=== PATIENT | female | born 1990 | race Caucasian/White ===

== ENCOUNTER → 2017-06-04 | Day surgery (SDC) | payer OTHER ==
[2017-06-04 16:28] VITALS: BP 157/96; TEMP 98.5; BMI 39.1
[2017-06-04 16:52] LABS: #Eosinphils 0.1 thou/uL (0.0-0.7); #Lymphocytes 3.1 thou/uL (1.20-3.40); #Monocytes 0.7 thou/uL (0.11-0.59); #Neutrophils 7.7 thou/uL (1.40-6.50); %Basophils 0.4 % (0.0-1.0); %Eosinophils 0.9 % (0.0-10.0); %Lymphocytes 26.8 % (21.0-51.0); %Monocytes 5.6 % (0.0-10.0); Hematocrit 39.1 % (36.0-47.0); Mean Platelet Volume 7.5 fL (7.4-10.4); Red Blood Cell (RBC) Count 4.22 mill/uL (4.20-5.40); White Blood Cell (WBC) Count 11.6 thou/uL (4.8-10.8)
[2017-06-04 17:16] LABS: ALT (SGPT) 12 U/L (8-55); AST (SGOT) 14 U/L (5-34); Alkaline Phosphatase 224 U/L (40-150); Anion Gap 13 mmol/L (10-20); BUN (Urea Nitrogen) 10 mg/dL (7.0-18.7); Bilirubin, Total 0.4 mg/dL (0.2-1.2); Calc. Creatinine Clearance 216 mL/min (70-130); Calcium 8.8 mg/dL (7.8-10.44); Carbon Dioxide 21 mmol/L (22-29); Chloride 106 mmol/L (98-107); Estimated GFR-MDRD Greater than 90; Globulin 3.2 g/dL (2.4-3.5); Protein, Total 6.5 g/dL (6.0-8.3)
--- NOTE | 2017-06-04 18:16 | PDOC.LDHP ---
Labor and Delivery H&P Chief complaint: other (BP workup) HPI: 26 y/o G1 at 31w5d, patient of Dr. Tello, presents from clinic for BP workup. Patient has a history of elevated BPs prior to 20 weeks but has not required medication. Denies VB, LOF, ctx, ARORA, vision changes, or abdominal pain. +FM. ROS neg for HEENT, cv, pulm, gi, gu, neuro, psych, skin, musculoskeletal or constitutional symptoms other than mentioned above. OB History Details: First Current complications: hypertension Past Medical History: PCOS CHTN Current medications: pre-antonio vitamins Previous surgical history: none Allergies/Adverse Reactions: Allergies Allergy/AdvReac Type Severity Reaction Status Date / Time No Known Allergies Allergy Verified 06/04/17 16:29 Social history: none - Physical Exam Vital signs reviewed and normal: yes General: NAD, resting Lungs: nonlabored breathing Abdomen: gravid Extremeties: no edema FHT: category 1 (130s, mod variability, + accels, no decels) [place] contractions every: none - OB Labs Additional Labs: Laboratory Results - last 24 hr 06/04/17 06/04/17 06/04/17 16:41 16:41 17:30 WBC 11.6 H RBC 4.22 Hgb 13.6 Hct 39.1 MCV 92.5 MCH 32.2 H MCHC 34.9 RDW 12.1 Plt Count 139 MPV 7.5 Neutrophils % 66.3 Lymphocytes % 26.8 Monocytes % 5.6 Eosinophils % 0.9 Basophils % 0.4 Neutrophils # 7.7 H Lymphocytes # 3.1 Monocytes # 0.7 H Eosinophils # 0.1 Basophils # 0.0 Sodium 136 Potassium 3.9 Chloride 106 Carbon Dioxide 21 L Anion Gap 13 BUN 10 Creatinine 0.60 Estimated GFR (MDRD) Greater than 90 Glucose 90 Calcium 8.8 Total Bilirubin 0.4 AST 14 ALT 12 Alkaline Phosphatase 224 H Serum Total Protein 6.5 Albumin 3.3 L Globulin 3.2 Albumin/Globulin Ratio 1.0 L U Random Total Protein Less than 10 Urine Creatinine 29.02 L - Assessment 26 y/o G1 at 31w5d with no e/o preeclampsia and normal to mild range BPs. status reassuring with reactive NST. - Plan -: D/c home with precautions. Discussed with Dr. Tello who will call in Rx for Labetalol to patient's pharmacy and schedule for follow up next week.
== END ==
LOC: L&D/OP 16:04
PROVIDERS: ATTEND Obstetrics & Gynecology
DX: O16.3 Unspecified maternal hypertension, third trimester (principal); E28.2 Polycystic ovarian syndrome; Z3A.31 31 weeks gestation of pregnancy; Z79.899 Other long term (current) drug therapy
CPT/HCPCS: 36415; 80053; 82570; 84156; 85025; 86592; 87389

== ENCOUNTER 2017-07-16 10:49 | Inpatient (IN) | payer OTHER ==
[2017-07-16] MEDS: Lactated Ringer's 1,000 ML IV SCH ×3 (11:25→19:00)
[2017-07-16 11:44] VITALS: BMI 40.4
[2017-07-16] MEDS ORDERED: Promethazine HCl 25 MG/ML VIAL IM PRN ×2 (11:49→19:48)
[2017-07-16] MEDS ORDERED: Acetaminophen/Codeine 30-300mg Tablet PO PRN ×2 (11:49)
[2017-07-16] MEDS ORDERED: Ibuprofen 800 MG TAB PO PRN (11:49)
[2017-07-16] MEDS ORDERED: Meperidine HCl/PF 25 MG/ML VIAL IM/IV PRN (11:49)
[2017-07-16] MEDS ORDERED: Lidocaine 1% (PF) 30 ML VIAL SC PRN (11:49)
[2017-07-16] MEDS ORDERED: Ondansetron HCl/PF 4 MG/2 ML Vial IVP PRN ×2 (11:49→19:48)
[2017-07-16] MEDS ORDERED: Docusate 100 MG CAP PO PRN (11:58)
[2017-07-16] MEDS ORDERED: LR 500 ML/Oxytocin 10 units 500 ML IV SCH (12:00)
[2017-07-16 12:03] LABS: Hemoglobin 13.1 g/dL (12.0-16.0); Mean Corpuscular Volume 90.9 fl (81.0-99.0); Mean Platelet Volume 7.4 fL (7.4-10.4); Platelet Count 212 thou/uL (130-400); RBC Distribution Width 12.9 % (11.5-14.5); Red Blood Cell (RBC) Count 4.37 mill/uL (4.20-5.40); White Blood Cell (WBC) Count 12.3 thou/uL (4.8-10.8)
--- NOTE | 2017-07-16 12:05 | PDOC.LDHP ---
Labor and Delivery H&P Chief complaint: scheduled induction HPI: Pt is a 26yo G1 @ 37.5 sent from clinic w BP 160/110s and hx of CHTN on meds, w increasing BP for IOL. No PIH sx. Current gestational age (weeks): 37 Due date: 08/01/17 Dating criteria: first trimester ultrasound Grav: 1 Para: 0 OB History Details: CHTN dx from BP 140/90s noted at 13 weeks Single UA Current complications: other (CHTN) Abnormal US findings: Yes (single UA) Past Medical History: CHTN Current medications: other (labetalol 100mg BID) Previous surgical history: none Allergies/Adverse Reactions: Allergies Allergy/AdvReac Type Severity Reaction Status Date / Time No Known Allergies Allergy Verified 06/04/17 16:29 Social history: none - Physical Exam Abnormal vital signs: BP in office 160/100 General: resting Lungs: nonlabored breathing Abdomen: gravid Extremeties: no edema FHT: category 1 - Vaginal Exam cm dilated: 2 Effacement: 75% Station: -2 - OB Labs Blood type: O RH: positive Antibody Screen: negative HIV: negative RPR: negative HEPSAg: negative 1 hour GCT: negative GBS: negative Rubella: non-immune - Assessment L&D Assessment: medically indicated induction (CHTN w increasing BP over baseline) - Plan Plan: admit to L&D, cervical ripening, labor augmentation if indicated, anesthesia consult for pain management -: A/P: 26yo G1 at 37.5 w CHTN, single UA and increasing BP over baseline w favorable cervix for IOL
[2017-07-16 12:16] LABS: ALT (SGPT) 20 U/L (8-55); AST (SGOT) 18 U/L (5-34)
[2017-07-16 12:35] LABS: Syphilis Antibody Nonreactive (Nonreactive); Syphilis Antibody Index 0.03 S/CO (<1.00 Non-Reactive)
[2017-07-16 12:36] LABS: HBSAg Index 0.38 S/CO (0-0.99); Hep B Surf Ag Non-Reactive S/CO (NonReactive)
[2017-07-16] MEDS ORDERED: Fentanyl 4 mcg/Marc 0.1% Cadd 100 ML ONE (17:23)
[2017-07-16] MEDS: LR 500 ML/Oxytocin 10 units 500 ML IV SCH (18:58)
[2017-07-16] MEDS ORDERED: Acetaminophen 325 MG TAB PO PRN (19:48)
[2017-07-16] MEDS ORDERED: Naloxone HCl 0.4 mg/ml Vial IVP PRN ×2 (19:48)
[2017-07-16] MEDS ORDERED: Eucerin (Mineral Oil/Petrolatum,White) 30 gm Jar TOP PRN (19:48)
[2017-07-16] MEDS ORDERED: Lactated Ringer's 500 ML IV PRN (19:48)
[2017-07-16] MEDS ORDERED: diphenhydrAMINE 50 MG/ML VIAL IVP PRN (19:48)
[2017-07-16] MEDS ORDERED: ePHEDrine/0.9% NaCl/PF SYRINGE 50 mg/10 ml SLOW IVP PRN (19:48)
[2017-07-16] MEDS ORDERED: Communication Order-Pharmacy FS SCH (20:00)
--- NOTE | 2017-07-17 00:10 | PDOC.EVN ---
Event Note - Event Note Event Note: Pt seen at 2019, comfortable with epidural, no complaints 130/80s NAD Resp unlabored . cx 3/50/-3 Laboratory Last Values WBC 12.3 thou/uL (4.8-10.8) H 07/16/17 11:25 RBC 4.37 mill/uL (4.20-5.40) 07/16/17 11:25 Hgb 13.1 g/dL (12.0-16.0) 07/16/17 11:25 Hct 39.7 % (36.0-47.0) 07/16/17 11:25 MCV 90.9 fl (81.0-99.0) 07/16/17 11:25 MCH 30.0 pg (27.0-31.0) 07/16/17 11:25 MCHC 33.0 g/dL (32.0-36.0) 07/16/17 11:25 RDW 12.9 % (11.5-14.5) 07/16/17 11:25 Plt Count 212 thou/uL (130-400) 07/16/17 11:25 MPV 7.4 fL (7.4-10.4) 07/16/17 11:25 AST 18 U/L (5-34) 07/16/17 11:25 ALT 20 U/L (8-55) 07/16/17 11:25 Syphilis IgG/IgM Ab Nonreactive (Nonreactive) 07/16/17 11:25 Hep Bs Antigen Non-Reactive S/CO (NonReactive) 07/16/17 11:25 Blood Type O POSITIVE 07/16/17 11:25 Antibody Screen NEGATIVE 07/16/17 11:25 A/P 37+ week IUP with Pre-e, IOL with pitocin, on Mag * add on creatinine * has epidural * AROM when appropriate
--- NOTE | 2017-07-17 00:13 | PDOC.EVN ---
Event Note - Event Note Event Note: Pt seen at 2320 Hitting epidural button, starting to feel some ctx, otherwise no complaints 120-130/60-80s NAD Resp unlabored . cx 3.5/50/-2 AROM clear with show A/P: * 37+ week IUP with Cat I FHT * IOL for Pre-e s/p AROM * On Magnesium. Will check AM labs
[2017-07-17 01:06] LABS: Calc. Creatinine Clearance 188 mL/min (70-130); Estimated GFR-MDRD Greater than 90
[2017-07-17] MEDS: Fentanyl 4mcg/Marcaine 0.1% Cassette 100 ML EPIDURAL SCH ×3 (01:25→11:27)
[2017-07-17 05:34] LABS: #Basophils 0.1 thou/uL (0.0-0.2); #Eosinphils 0.1 thou/uL (0.0-0.7); #Lymphocytes 3.6 thou/uL (1.20-3.40); %Basophils 0.5 % (0.0-1.0); %Eosinophils 0.4 % (0.0-10.0); %Lymphocytes 24.3 % (21.0-51.0); %Monocytes 6.7 % (0.0-10.0); Hemoglobin 12.1 g/dL (12.0-16.0); Mean Corpuscular HGB CONC 33.3 g/dL (32.0-36.0); Mean Corpuscular Hemoglobin 30.5 pg (27.0-31.0); Mean Corpuscular Volume 91.5 fl (81.0-99.0); Mean Platelet Volume 7.2 fL (7.4-10.4); Platelet Count 191 thou/uL (130-400); Red Blood Cell (RBC) Count 3.96 mill/uL (4.20-5.40); White Blood Cell (WBC) Count 14.8 thou/uL (4.8-10.8)
[2017-07-17 06:04] LABS: ALT (SGPT) 18 U/L (8-55); AST (SGOT) 19 U/L (5-34); Albumin 2.9 g/dL (3.5-5.0); Alkaline Phosphatase 253 U/L (40-150); Anion Gap 15 mmol/L (10-20); BUN (Urea Nitrogen) 11 mg/dL (7.0-18.7); Bilirubin, Total 0.6 mg/dL (0.2-1.2); Calc. Creatinine Clearance 167 mL/min (70-130); Calcium 8.9 mg/dL (7.8-10.44); Carbon Dioxide 20 mmol/L (22-29); Chloride 109 mmol/L (98-107); Estimated GFR-MDRD 86; Glucose 80 mg/dL (70-105); Potassium 3.9 mmol/L (3.5-5.1); Protein, Total 5.9 g/dL (6.0-8.3); Sodium 140 mmol/L (136-145)
[2017-07-17] MEDS: Lactated Ringer's 1,000 ML IV SCH (07:45)
--- NOTE | 2017-07-17 08:39 | PDOC.LDPN ---
Labor & Delivery Progress Note - Subjective Subjective: comfortable - Objective Vital signs reviewed and normal: yes General: NAD Uterine fundus: non tender Dilation: 7 Effacement: 100% Station: 1+ FHT: category 1 [place] contractions every: 3 Other exam findings: pit at 10 - Assessment (1) Gestational hypertension Code(s): O13.9 - GESTATIONAL HTN W/O SIGNIFICANT PROTEINURIA, UNSP TRIMESTER Current Visit: Yes Status: Acute Qualifiers: Trimester: third trimester Qualified Code(s): O13.3 - Gestational [ -induced] hypertension without significant proteinuria, third trimester Plan: continue plan of care, labor augmentation -: anticipate continued progress through active phase of labor.
[2017-07-17] MEDS: LR 500 ML/Oxytocin 10 units 500 ML IV SCH (09:21)
[2017-07-17] MEDS ORDERED: Bupivacaine 0.25% HCL 30 ML VIAL ONE (11:11)
[2017-07-17] MEDS: LR / Pitocin 40 units/1000 ml 1,000 ML IV PRN ×2 (12:07→14:16)
--- NOTE | 2017-07-17 12:28 | PDOC.OPDEL ---
OB Operative/Delivery Note Delivery Dr/Surgeon: Alex ventura Omer Jeremy MS3 Pre-Delivery Diagnosis: medically indicated induction (gest htn) Weeks gestation: 37 Anesthesia: epidural - Findings A Sex: male Weight: 0 oz (pending) - 1 min: 9 - 5 min: 9 - Additional Findings/Plan Placenta delivered: spontaneous Repaired Obstetrical Laceration: 2nd degree (repair with 2/0 chromic.) Estimated blood loss: 400 Post delivery plan: routine recovery
[2017-07-17] MEDS ORDERED: Varicella virus, LIVE 0.5 ML VIAL SC ONE (14:54)
[2017-07-17] MEDS ORDERED: Adacel (T-DAP) 0.5 ML VIAL IM ONE (14:54)
[2017-07-17] MEDS ORDERED: Promethazine HCl 25 MG/ML VIAL IM PRN (14:54)
[2017-07-17] MEDS ORDERED: Acetaminophen/Codeine 30-300mg Tablet PO PRN ×2 (14:54)
[2017-07-17] MEDS ORDERED: Preparation H Ointment 28 GM TUBE PR PRN (14:54)
[2017-07-17] MEDS ORDERED: Measles/Mumps/Rubella 10 MCG/0.5 ML VIAL SC ONE (14:54)
[2017-07-17] MEDS ORDERED: Zolpidem Tartrate 5 MG TAB PO PRN (14:54)
[2017-07-17] MEDS ORDERED: Ondansetron HCl/PF 4 MG/2 ML Vial IVP PRN (14:54)
[2017-07-17] MEDS ORDERED: Milk Of Magnesia 30 ML UDCUP PO PRN (14:54)
[2017-07-17] MEDS ORDERED: diphenhydrAMINE 25 MG CAP PO PRN (14:54)
[2017-07-17] MEDS ORDERED: Bisacodyl 10 MG SUPP PR PRN (14:54)
[2017-07-17] MEDS ORDERED: LR / Pitocin 40 units/1000 ml 1,000 ML IV SCH (14:54)
[2017-07-17] MEDS ORDERED: Lanolin Ointment 7 GM TUBE TOP PRN (14:54)
[2017-07-17] MEDS ORDERED: Benzocaine/Menthol 20-0.5% 60 ML CAN TOP PRN (14:54)
[2017-07-17 14:56] LABS: HIV (1/2) Antibody/Antigen Non-Reactive (NonReactive); HIV 1/2 INDEX 0.12 S/CO (<1.00)
[2017-07-17] MEDS: Ibuprofen 800 MG TAB PO SCH ×2 (15:17→21:31)
[2017-07-17] MEDS: Ferrous Sulfate 325 MG TAB PO SCH (16:53)
[2017-07-17] MEDS: Docusate Calcium (SURFAK) 240 MG CAP PO SCH (21:30)
[2017-07-18] MEDS: Ibuprofen 800 MG TAB PO SCH ×3 (05:13→23:07)
--- NOTE | 2017-07-18 07:34 | PDOC.PP ---
Post Progress Note Post Day #: 1 PO intake tolerated: yes Flatus: yes Ambulation: yes Vital Signs (12 hours) Temp Pulse Resp BP BP 07/18/17 06:00 97.8 F 103 H 16 07/18/17 04:00 97.8 F 103 H 16 132/87 07/18/17 00:00 98.1 F 96 16 140/83 07/17/17 20:00 97.9 F 111 H 16 07/17/17 19:39 97.9 F 111 H 16 130/89 Weight Weight 221 lb - Physical Examination General: NAD Cardiovascular: no m/r/g, RRR Respiratory: clear to auscultation bilaterally, non-labored breathing Abdominal: + bowel sounds, lochia Extremities: negative homans (B) Neurological: no gross focal deficits Psychiatric: A&Ox3, normal affect Result Diagrams: 07/17/17 05:17 07/17/17 05:17 Additional Labs: Post Labs Blood Type O POSITIVE 07/16/17 11:25 Hep Bs Antigen Non-Reactive S/CO (NonReactive) 07/16/17 11:25 (1) Gestational hypertension Code(s): O13.9 - GESTATIONAL HTN W/O SIGNIFICANT PROTEINURIA, UNSP TRIMESTER Status: Acute Qualifiers: Trimester: third trimester Qualified Code(s): O13.3 - Gestational [ -induced] hypertension without significant proteinuria, third trimester - Assessment/Plan routine care. home tomorrow
[2017-07-18] MEDS: Ferrous Sulfate 325 MG TAB PO SCH ×2 (09:33→15:46)
[2017-07-18] MEDS: Prenatal Vitamin 1 TAB PO SCH (09:33)
[2017-07-18] MEDS: Docusate Calcium (SURFAK) 240 MG CAP PO SCH ×2 (09:33→21:33)
[2017-07-19] MEDS: Ibuprofen 800 MG TAB PO SCH ×2 (06:03→15:18)
--- NOTE | 2017-07-19 08:15 | DIS ---
DATE OF DISCHARGE: 07/19/2017 ADMITTING DIAGNOSIS: Chronic hypertension at term. DISCHARGE DIAGNOSIS: Chronic hypertension at term. PROCEDURE: Term spontaneous vaginal delivery. CONSULTATIONS: None. HOSPITAL COURSE: The patient is a 26-year-old female who was admitted on 07/16/2017 for worsen ing chronic hypertension at term for induction of labor. The patient subsequently has an uncomplicat ed term spontaneous vaginal delivery and with an estimated blood loss of 400 mL. For complete detail s of her delivery, please refer to the delivery note. The patient's course here on Labor and Delivery have been uncomplicated and blood pressure today is 127/79, temperature 97.8, pulse of 1 04, respiratory rate of 16. Her hemoglobin is 12.1, hematocrit 36.2, platelets of 191,000. The patient reports she is tolerating p.o., voiding on her own, having decreased lochia and good pain control. Abdomen is soft , difficult to assess fundus due to habitus. Extremities are nontender with mild edema that is symme trical. The patient will be discharged to home with ibuprofen p.r.n. for pain. The patient is to re sume any home medications that she has had. She has instructions to follow up with Dr. Tello in 1 we ek for a blood pressure check. She has instructions to seek attention sooner if she experiences feve r, increasing bleeding or pain.
[2017-07-19] MEDS: Ferrous Sulfate 325 MG TAB PO SCH ×2 (10:17→18:29)
[2017-07-19] MEDS: Prenatal Vitamin 1 TAB PO SCH (10:18)
[2017-07-19] MEDS: Docusate Calcium (SURFAK) 240 MG CAP PO SCH (10:18)
[2017-07-19 13:07] VITALS: BP 140/70; TEMP 98.2
== END 2017-07-19 22:00 | disposition home or self-care (01) | DRG 775 ==
LOC: L&D 10:49 → 3SW 07-17 14:48
PROVIDERS: ADMIT Obstetrics & Gynecology; ATTEND Obstetrics & Gynecology
PROC: 3E033VJ Introduction of Other Hormone into Peripheral Vein, Percutaneous Approach (ICD-10-PCS; 2017-07-16)
PROC: 10E0XZZ Delivery of Products of Conception, External Approach (ICD-10-PCS; principal; 2017-07-17)
PROC: 0KQM0ZZ Repair Perineum Muscle, Open Approach (ICD-10-PCS; 2017-07-17)
PROC: 10907ZC Drainage of Amniotic Fluid, Therapeutic from Products of Conception, Via Natural or Artificial Opening (ICD-10-PCS; 2017-07-17)
DX: O13.4 Gestational [pregnancy-induced] hypertension without significant proteinuria, complicating childbirth (principal); O70.1 Second degree perineal laceration during delivery; Z3A.37 37 weeks gestation of pregnancy; Z37.0 Single live birth; Z23 Encounter for immunization
CPT/HCPCS: 36415; 51702; 82565; 84450; 84460; 85025; 85027; 86780; 86850; 86900; 86901; 87340; 87389; 88307; 90707; 99285; J0595; J2001; J2405; J7120; S0020

== ENCOUNTER 2018-07-04 16:35 | Day surgery (SDC) | payer OTHER ==
[2018-07-04 17:56] VITALS: BP 134/84; BMI 36.3
--- NOTE | 2018-07-04 18:19 | ULT ---
BIOPHYSICAL PROFILE ULTRASOUND; 07/04/2018 HISTORY: No movement on recent doctor's visit. FINDINGS: There is evidence of a single intrauterine gestation, in a breech presentation. Cardiac Doppler does demonstrate heart tones with a heart rate of 144 beats per minute. The placenta is loca sujey anteriorly. The lower uterine segment was not imaged to evaluate for placenta previa on this exa mination. There is a normal amount of amniotic fluid, with an amniotic fluid index of 17.3 cm. anatomical structures were not evaluated on this examination. A score of 2 was obtained each for tone, breathing, movements, and amniotic fluid v olume. IMPRESSION: 1. Single intrauterine gestation, in breech presentation, with heart tones documented. 2. The lower uterine segment was not imaged to evaluate for placenta previa. 3. Amniotic fluid index is 17.3 cm. 4. A total biophysical profile score of 8/8 is obtained. POS: [facility]
--- NOTE | 2018-07-04 20:28 | PRG ---
DATE OF SERVICE: 07/04/2018 PRIMARY BARROW WORKER: David Tello DO MS CHIEF COMPLAINT: Nonreassuring BPP. HISTORY OF PRESENT ILLNESS: The patient is a 27-year-old G2, P1 female with an intrauterine at 31 weeks, who was sent from clinic to Labor and Delivery for further evaluation after receiving a BPP of 4/8. The patient has a past medical history of -induced hypertension versus chronic hypertension and is being followed closely. Upon arrival, the patient reports that she is having good movement. She reports her blood pressure at home had been within normal limits so far with this . She denies any other complications with this at this time. The patient reports good movement. She denies any headaches, abdominal pain, or any other complications. OBJECTIVE: VITAL SIGNS: Today, blood pressure 134/84, heart rate of 104, respiratory rate of 18. GENERAL: She appears to be in no acute distress. She is alert, oriented, cooperative, and pleasant to interact with. HEAD: Normocephalic, atraumatic. LUNGS: Clear to auscultation Bilaterally. HEART: Regular rate and rhythm. ABDOMEN: Soft and gravid. EXTREMITIES: Nontender. heart tracing performed and noted to have a baseline in the 140s with moderate long-term variability, positive 15 x 15 accelerations, no decelerations. Tocometer not showing any contractions. She had a BPP performed, which was 8/8 with an SAHRA of more than 14. ASSESSMENT/PLAN: The patient is a 27-year-old, G2, P1 female with an intrauterine at 31 weeks, who is sent to the hospital for a non-reassuring biophysical profile in the clinic. Repeat evaluation here shows a reassuring biophysical profile of 8/8 and reactive nonstress test and normal vital signs. The patient is being discharged home with reassurance and instructions to follow up with her primary OB as scheduled. Job ID: [id number]
== END 2018-07-04 19:30 | disposition home or self-care (01) ==
LOC: L&D/OP 16:35
PROVIDERS: ATTEND Obstetrics & Gynecology
DX: Z34.83 Encounter for supervision of other normal pregnancy, third trimester (principal)
CPT/HCPCS: 76819

== ENCOUNTER 2018-07-18 10:08 | Day surgery (SDC) | payer OTHER ==
[2018-07-18 11:04] VITALS: BMI 36.9
[2018-07-18 11:52] LABS: #Eosinphils 0.1 thou/uL (0.0-0.7); #Lymphocytes 3.3 thou/uL (1.20-3.40); #Monocytes 0.4 thou/uL (0.11-0.59); #Neutrophils 6.5 thou/uL (1.40-6.50); %Basophils 0.1 % (0.0-1.0); %Eosinophils 0.6 % (0.0-10.0); %Lymphocytes 32.1 % (21.0-51.0); %Monocytes 4.3 % (0.0-10.0); %Neutrophils 62.8 % (42.0-75.0); Hemoglobin 11.3 g/dL (12.0-16.0); Mean Corpuscular HGB CONC 33.4 g/dL (32.0-36.0); Mean Corpuscular Hemoglobin 28.3 pg (27.0-31.0); Mean Corpuscular Volume 84.9 fL (78.0-98.0); Mean Platelet Volume 6.8 fL (7.4-10.4); Platelet Count 244 thou/uL (130-400); RBC Distribution Width 13.1 % (11.5-14.5); Red Blood Cell (RBC) Count 3.98 mill/uL (4.20-5.40); White Blood Cell (WBC) Count 10.4 thou/uL (4.8-10.8)
[2018-07-18 12:34] LABS: ALT (SGPT) 19 U/L (8-55); AST (SGOT) 17 U/L (5-34); Albumin 3.3 g/dL (3.5-5.0); Alkaline Phosphatase 135 U/L (40-150); Anion Gap 14 mmol/L (10-20); BUN (Urea Nitrogen) 8 mg/dL (7.0-18.7); Bilirubin, Total 0.3 mg/dL (0.2-1.2); Calc. Creatinine Clearance 192 mL/min (70-130); Calcium 8.9 mg/dL (7.8-10.44); Carbon Dioxide 21 mmol/L (22-29); Chloride 107 mmol/L (98-107); Estimated GFR-MDRD Greater than 90; Globulin 3.2 g/dL (2.4-3.5); Glucose 83 mg/dL (70-105); Potassium 3.7 mmol/L (3.5-5.1); Protein, Total 6.5 g/dL (6.0-8.3); Sodium 138 mmol/L (136-145)
[2018-07-18 13:06] LABS: Creatinine, Urine 59.05 mg/dL (47-110); Protein, Urine Random Quant Less than 10 mg/dL (1-14)
--- NOTE | 2018-07-18 13:45 | ULT ---
BIOPHYSICAL PROFILE: COMPARISON: 07/04/2018. HISTORY: Elevated blood pressure. FINDINGS: Single viable intrauterine fetus in cephalic presentation with an anterior placenta. Cervical length is 3.2 cm. movement, breathing, and tone were evaluated over 30 minutes. [id number] pr ofile=8/8, normal. heart rate 140 b.p.m. IMPRESSION: Unremarkable stable biophysical score. POS: [facility]
== END 2018-07-18 13:21 | disposition home or self-care (01) ==
LOC: L&D/OP 10:08
PROVIDERS: ATTEND Obstetrics & Gynecology
DX: O13.9 Gestational [pregnancy-induced] hypertension without significant proteinuria, unspecified trimester (principal); Z79.899 Other long term (current) drug therapy
CPT/HCPCS: 36415; 76819; 80053; 82570; 84156; 85025; 99283

== ENCOUNTER 2018-08-22 05:30 | Inpatient (IN) | payer OTHER ==
[~2018-08-22 05:30] MED LIST: Bupivacaine 0.25% HCL 30 ML VIAL ONE; Bupivacaine/Epinephrine 0.25% 30 ML VIAL ONE
[2018-08-22] MEDS ORDERED: Ondansetron PF 4 MG/2 ML Vial IVP PRN (23:37)
[2018-08-22] MEDS ORDERED: Butorphanol Tartrate 1 MG/ML VIAL SLOW IVP PRN (23:37)
[2018-08-22] MEDS ORDERED: Acetaminophen 500 MG TAB PO PRN (23:37)
[2018-08-22] MEDS ORDERED: NS w/ Oxytocin 10 units 500 ML IV SCH ×2 (23:37)
[2018-08-22] MEDS ORDERED: Promethazine HCl 25 MG/ML VIAL IM PRN (23:37)
[2018-08-22] MEDS ORDERED: Ibuprofen 800 MG TAB PO PRN (23:37)
[2018-08-22] MEDS ORDERED: HYDROcodone/Acetaminophen 5/325 mg Tablet PO PRN ×2 (23:37)
[2018-08-22] MEDS ORDERED: Lidocaine 1% (PF) 30 ML VIAL SC PRN (23:37)
[2018-08-22] MEDS: Lactated Ringer's 1,000 ML IV SCH (23:40)
[2018-08-22 23:45] VITALS: BMI 38.2
[2018-08-22 23:50] LABS: Hemoglobin 11.2 g/dL (12.0-16.0); Mean Corpuscular HGB CONC 33.7 g/dL (32.0-36.0); Mean Corpuscular Hemoglobin 28.7 pg (27.0-31.0); Mean Corpuscular Volume 85.1 fL (78.0-98.0); Mean Platelet Volume 7.5 fL (7.4-10.4); Platelet Count 215 thou/uL (130-400); Red Blood Cell (RBC) Count 3.92 mill/uL (4.20-5.40); White Blood Cell (WBC) Count 9.3 thou/uL (4.8-10.8)
[2018-08-22 23:59] LABS: ALT (SGPT) 10 U/L (8-55); AST (SGOT) 13 U/L (5-34); Albumin 3.2 g/dL (3.5-5.0); Alkaline Phosphatase 196 U/L (40-150); Anion Gap 16 mmol/L (10-20); BUN (Urea Nitrogen) 8 mg/dL (7.0-18.7); Bilirubin, Total 0.3 mg/dL (0.2-1.2); Calc. Creatinine Clearance 187 mL/min (70-130); Calcium 8.6 mg/dL (7.8-10.44); Carbon Dioxide 17 mmol/L (22-29); Chloride 108 mmol/L (98-107); Estimated GFR-MDRD Greater than 90; Globulin 2.6 g/dL (2.4-3.5); Glucose 137 mg/dL (70-105); Potassium 3.7 mmol/L (3.5-5.1); Protein, Total 5.8 g/dL (6.0-8.3); Sodium 137 mmol/L (136-145)
[2018-08-23 00:27] LABS: HBSAg Index 0.26 S/CO (0-0.99); Hep B Surf Ag Non-Reactive S/CO (NonReactive)
[2018-08-23 00:47] LABS: Syphilis Antibody Nonreactive (Nonreactive); Syphilis Antibody Index 0.05 S/CO (<1.00 Non-Reactive)
[2018-08-23] MEDS ORDERED: Fentanyl 4 mcg/Bup 0.1% Cadd 100 ML ONE (04:53)
[2018-08-23] MEDS ORDERED: Lidocaine 1.5%/Epinephrine 1:200,000 5 ML AMPUL IJ ONE (04:54)
[2018-08-23] MEDS: Lactated Ringer's 1,000 ML IV SCH (05:34)
[2018-08-23] MEDS ORDERED: Promethazine HCl 25 MG/ML VIAL IM PRN (05:43)
[2018-08-23] MEDS ORDERED: Naloxone HCl 0.4 mg/ml Vial IVP PRN ×2 (05:43)
[2018-08-23] MEDS ORDERED: Ondansetron PF 4 MG/2 ML Vial IVP PRN ×2 (05:43→15:29)
[2018-08-23] MEDS ORDERED: ePHEDrine/0.9% NaCl/PF SYRINGE 50 mg/10 ml SLOW IVP PRN (05:43)
[2018-08-23] MEDS ORDERED: Lactated Ringer's 500 ML IV PRN (05:43)
[2018-08-23] MEDS ORDERED: Acetaminophen 325 MG TAB PO PRN (05:43)
[2018-08-23] MEDS ORDERED: Eucerin (Mineral Oil/Petrolatum,White) 30 gm Jar TOP PRN (05:43)
[2018-08-23] MEDS ORDERED: diphenhydrAMINE 50 MG/ML VIAL IVP PRN (05:43)
[2018-08-23] MEDS ORDERED: Fentanyl 4 mcg/Bupivacaine 0.1% Cassette 100 ML EPIDURAL SCH (05:45)
[2018-08-23] MEDS ORDERED: Communication Order-Pharmacy FS SCH (05:45)
--- NOTE | 2018-08-23 08:34 | PDOC.LDHP ---
Labor and Delivery H&P Chief complaint: scheduled induction HPI: Pt is a 27yo @ 38+ weeks here for IOL for CHTN. Current gestational age (weeks): 38 Due date: 09/01/18 Dating criteria: last menstrual period, first trimester ultrasound Grav: 2 Para: 1 OB History Details: CHTN not on medications during this , hx of x 1 Current complications: hypertension Abnormal US findings: No Current medications: pre- vitamins Previous surgical history: none Allergies/Adverse Reactions: Allergies Allergy/AdvReac Type Severity Reaction Status Date / Time No Known Allergies Allergy Verified 08/22/18 23:39 Social history: none - Physical Exam Vital signs reviewed and normal: yes General: NAD, resting Heart: RRR Lungs: CTAB Abdomen: gravid Extremeties: no edema FHT: category 1 - Vaginal Exam cm dilated: 3 (AROM on admit exam, clear fluid) Effacement: 50% Station: -2 - OB Labs Blood type: O RH: positive Antibody Screen: negative HIV: negative RPR: negative HEPSAg: negative 1 hour GCT: negative GBS: negative Rubella: immune - Assessment L&D Assessment: medically indicated induction (for CHTN) - Plan Plan: admit to L&D, labor augmentation if indicated, informed consent obtained, anesthesia consult for pain management -: A/P: 38.5 weeks, IOL for hx of CHTN with increase in BP the last few weeks (not on medication). Cervix favorable for IOL, FHT reassuring. Plan for pitocin IOL.
[2018-08-23] MEDS ORDERED: Fentanyl 100 MCG/2 ML VIAL ONE (12:39)
[2018-08-23] MEDS: NS / Oxytocin 40 units/1000ml 1,000 ML IV PRN ×2 (13:05→14:10)
--- NOTE | 2018-08-23 13:12 | PDOC.OPDEL ---
OB Operative/Delivery Note Delivery Dr/Surgeon: Omer Pre-Delivery Diagnosis: medically indicated induction (CHTN at 38 weeks) Procedure/Post Delivery Dx: spontaneous vaginal delivery Weeks gestation: 38 Anesthesia: epidural - Findings A Sex: female - 1 min: 8 - 5 min: 9 - Additional Findings/Plan Placenta delivered: spontaneous Repaired Obstetrical Laceration: 1st degree Estimated blood loss: 300ml Compilations/Other Findings: none Post delivery plan: routine recovery
[2018-08-23] MEDS ORDERED: Lanolin Ointment 7 GM TUBE TOP PRN (15:29)
[2018-08-23] MEDS ORDERED: Adacel (T-DAP) 0.5 ML SYRINGE IM ONE (15:29)
[2018-08-23] MEDS ORDERED: NS / Oxytocin 40 units/1000ml 1,000 ML IV SCH (15:29)
[2018-08-23] MEDS ORDERED: Bisacodyl 10 MG SUPP PR PRN (15:29)
[2018-08-23] MEDS ORDERED: Preparation H Ointment 28 GM TUBE PR PRN (15:29)
[2018-08-23] MEDS ORDERED: HYDROcodone/Acetaminophen 5/325 mg Tablet PO PRN ×2 (15:29)
[2018-08-23] MEDS ORDERED: Benzocaine/Menthol 20-0.5% 60 ML CAN TOP PRN (15:29)
[2018-08-23] MEDS ORDERED: Milk Of Magnesia 30 ML UDCUP PO PRN (15:29)
[2018-08-23] MEDS ORDERED: diphenhydrAMINE 25 MG CAP PO PRN (15:29)
[2018-08-23] MEDS: Ferrous Sulfate 325 MG TAB PO SCH (16:33)
[2018-08-23] MEDS: Ibuprofen 800 MG TAB PO SCH ×2 (16:51→23:56)
[2018-08-23] MEDS: Docusate Calcium (SURFAK) 240 MG CAP PO SCH (21:16)
[2018-08-24] MEDS: Ibuprofen 800 MG TAB PO SCH ×2 (06:50→14:30)
[2018-08-24] MEDS: Ferrous Sulfate 325 MG TAB PO SCH (07:24)
[2018-08-24] MEDS: Docusate Calcium (SURFAK) 240 MG CAP PO SCH (08:51)
[2018-08-24] MEDS ORDERED: Prenatal Vitamin 1 TAB PO SCH (09:00)
--- NOTE | 2018-08-24 10:56 | PDOC.PP ---
Post Progress Note Post Day #: 1 Subjective: doing well, no concerns, baby latching better than last baby PO intake tolerated: yes Flatus: yes Ambulation: yes Vital Signs (12 hours) Temp Pulse Resp BP Pulse Ox 08/24/18 08:46 97.6 F 114 H 20 136/83 100 08/24/18 03:00 97.8 F 104 H 16 128/78 08/23/18 23:15 98.1 F 107 H 20 128/74 Weight Weight 209 lb - Physical Examination General: NAD Respiratory: non-labored breathing Fundus firm & at: below umb Skin: no rash Neurological: no gross focal deficits Psychiatric: A&Ox3, normal affect Result Diagrams: 08/22/18 23:30 08/22/18 23:30 Additional Labs: Post Labs Blood Type O POSITIVE 08/22/18 23:30 Hep Bs Antigen Non-Reactive S/CO (NonReactive) 08/22/18 23:30 - Assessment/Plan PPD1 doing well, no concerns. BP WNL, doing well. Possible DC today.
[2018-08-24 11:46] VITALS: BP 136/93; TEMP 98.3
== END 2018-08-24 18:00 | disposition home or self-care (01) | DRG 807 ==
LOC: L&D 22:30 → 3SW 08-23 15:44
PROVIDERS: ADMIT Obstetrics & Gynecology; ATTEND Obstetrics & Gynecology
PROC: 10E0XZZ Delivery of Products of Conception, External Approach (ICD-10-PCS; principal; 2018-08-22)
PROC: 0HQ9XZZ Repair Perineum Skin, External Approach (ICD-10-PCS; 2018-08-22)
PROC: 10907ZC Drainage of Amniotic Fluid, Therapeutic from Products of Conception, Via Natural or Artificial Opening (ICD-10-PCS; 2018-08-22)
PROC: 3E033VJ Introduction of Other Hormone into Peripheral Vein, Percutaneous Approach (ICD-10-PCS; 2018-08-22)
DX: O10.92 Unspecified pre-existing hypertension complicating childbirth (principal); Z37.0 Single live birth; Z3A.38 38 weeks gestation of pregnancy; O77.0 Labor and delivery complicated by meconium in amniotic fluid; O70.0 First degree perineal laceration during delivery
CPT/HCPCS: 51702; 80053; 85027; 86780; 86850; 86900; 86901; 87340; J2001; J3010; J3490; S0020